=== PATIENT | female | born 1980 | race Caucasian/White ===

== ENCOUNTER → 2016-07-31 | Outpatient (CLI) | payer BC ==
[~2016-07-31] MED LIST: ACET-1256 PO; CHOL1000 PO; COD1OIL4 PO; FLUT0.0529 NAE; IBUP-103 PO; MTR600X PO; MULT-506 PO
== END | disposition home or self-care (01) ==
LOC: C.PAPS 15:28
PROVIDERS: ATTEND Family Medicine
DX: Z01.419 Encounter for gynecological examination (general) (routine) without abnormal findings (principal)

== ENCOUNTER → 2017-08-06 | Outpatient (CLI) | payer OTHER | END | disposition home or self-care (01) | LOC: C.PAPS 12:06 | PROVIDERS: ATTEND Family Medicine | DX: Z12.4 Encounter for screening for malignant neoplasm of cervix (principal); Z11.51 Encounter for screening for human papillomavirus (HPV) ==